=== PATIENT | male | born 1965 | race African-American/Black ===

== ENCOUNTER 2018-07-08 09:27 | Emergency (ER) | payer BC ==
[~2018-07-08] VITALS: Ht 182.9 cm; Wt 88.0 kg
[2018-07-08 09:50] VITALS: BP 147/89
[2018-07-08] MEDS ORDERED: HYDROcodone-ACET 5/325MG TAB PO ONE (10:15)
== END 2018-07-08 10:41 | disposition home or self-care (01) ==
LOC: ER 09:27
DX: S92.514A Nondisplaced fracture of proximal phalanx of right lesser toe(s), initial encounter for closed fracture (principal); W22.8XXA Striking against or struck by other objects, initial encounter; Y93.89 Activity, other specified; Y99.8 Other external cause status; Y92.89 Other specified places as the place of occurrence of the external cause
CPT/HCPCS: 73630; 99284; L3260

== ENCOUNTER 2020-07-17 04:54 | Emergency (ER) | payer SELFPAY ==
[~2020-07-17] VITALS: Ht 180.3 cm; Wt 84.8 kg
[2020-07-17 06:47] LABS: Basophils # (auto) 0.1 10 ^3/uL (0-0.2); Eosinophils # (auto) 0 10 ^3/uL (0-0.8); Eosinophils % (auto) 0.5 % (0.0-7.0); Hematocrit 42.1 % (41.0-53.0); Hemoglobin 14.2 g/dL (13.5-17.5); Lymphocytes # (auto) 1.1 10 ^3/uL (0.4-5.4); Lymphocytes % (auto) 19.2 % (10.0-50.0); Mean Corpuscular Hemoglobin 32.1 pg (28.0-32.0); Mean Corpuscular Hgb Conc. 33.8 g/dL (32.0-36.0); Mean Corpuscular Volume 94.8 fL (80.0-100.0); Monocytes # (auto) 0.4 10 ^3/uL (0-1.3); Monocytes % (auto) 7.4 % (0.0-12.0); Neutrophils # (auto) 4.2 10 ^3/uL (1.6-8.6); Neutrophils % (auto) 71.9 % (37.0-80.0); Nucleated Red Blood Cells % 0.8 %; Platelet Count (auto) 308 10^3/uL (140-450); Red Blood Cells 4.44 10^6/uL (4.5-5.90); Red Cell Distribution Width 14.4 % (11.8-14.3); White Blood Cell 5.9 10^3/uL (4.4-10.8)
[2020-07-17] MEDS ORDERED: SODIUM CHLORIDE 0.9% 500 ML IV ONE (07:00)
[2020-07-17] MEDS ORDERED: KETOROLAC TROMETH 30 MG/ML 1ML VIAL IV ONE (07:00)
[2020-07-17 07:06] LABS: Albumin 3.4 g/dL (3.4-5.0); Anion Gap 4 (5-15); Blood Urea Nitrogen 11 mg/dL (7-18); Calcium 9.2 mg/dL (8.5-10.1); Carbon Dioxide 27 mmol/L (21-32); Chloride 105 mmol/L (98-107); Glucose 91 mg/dL (74-106); Lipase 108 U/L (73-393); Potassium 4.6 mmol/L (3.5-5.1); Sodium 136 mmol/L (136-145)
[2020-07-17 07:12] LABS: Alanine Aminotransferase 13 U/L (16-61); Alkaline Phosphatase 81 U/L (45-117); Aspartate Aminotransferase 12 U/L (15-37); BUN/Creatinine Ratio 7.1; Bilirubin, Total 0.6 mg/dL (0.2-1.0); GFR African American 60 mL/min; GFR Non-African American 50 mL/min; Total Protein 7.5 g/dL (6.4-8.2)
[2020-07-17 09:24] VITALS: BP 156/98
== END 2020-07-17 09:25 | disposition home or self-care (01) ==
LOC: ER 04:54
DX: K80.20 Calculus of gallbladder without cholecystitis without obstruction (principal); K59.00 Constipation, unspecified
CPT/HCPCS: 36415; 74176; 80053; 83690; 84484; 85025; 93005; 96361; 96374; 99285; J1885; J7030

== ENCOUNTER 2020-10-18 20:50 | Emergency (ER) | payer BC, MEDICAID ==
[~2020-10-18] VITALS: Ht 182.9 cm; Wt 90.7 kg
[2020-10-18 20:50] VITALS: BP 147/67
[2020-10-18] MEDS ORDERED: NALOXONE HCL 0.4 MG/ML VIAL ONE (20:55)
[2020-10-18] MEDS ORDERED: SODIUM CHLORIDE 0.9% 1,000 ML IV ONE (21:00)
[2020-10-18] MEDS ORDERED: NALOXONE HCL 0.4 MG/ML VIAL IV ONE (21:30)
== END 2020-10-19 06:23 | disposition home or self-care (01) ==
LOC: EDBD 20:50 → ER 20:52
DX: T50.7X1A Poisoning by analeptics and opioid receptor antagonists, accidental (unintentional), initial encounter (principal); R41.82 Altered mental status, unspecified; F17.210 Nicotine dependence, cigarettes, uncomplicated; F12.10 Cannabis abuse, uncomplicated; I10 Essential (primary) hypertension; Y92.89 Other specified places as the place of occurrence of the external cause
CPT/HCPCS: 96374; 99283; J2310

== ENCOUNTER 2020-10-18 23:20 | Emergency (ER) | payer MEDICAID | END 2020-10-18 23:53 | disposition left against medical advice (07) | LOC: ER 23:22 | DX: Z53.21 Procedure and treatment not carried out due to patient leaving prior to being seen by health care provider ==